=== PATIENT | female | born 1960 | race Caucasian/White ===

== ENCOUNTER 2021-11-24 16:34 | Emergency (ER) | payer BC, OTHER ==
[2021-11-24] MEDS ORDERED: Catapres 0.1 MG PO ONE (17:11)
[2021-11-24] MEDS ORDERED: Catapres 0.1 MG ONE (17:14)
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
[2021-11-24 17:54] LABS: Absolute Neutrophil Ct (ANC) 9.34 (1.4-6.9); Basophil (Absolute #) 0.06 (0-0.4); Eosinophil % 0.3 % (0.00-5.0); Eosinophil (Absolute #) 0.04 (0-0.5); Hemoglobin 17.7 gm/dl (12.0-16.0); Lymphocyte (Absolute #) 3.31 (1.0-4.6); Lymphocytes % 23.5 % (24.0-44.0); Mean Cell Volume 86.3 fl (78-100); Mean Corpuscular Hemoglobin 29.9 pg (26-32); Mean Corpuscular Hgb Concent. 34.7 g/dl (32-36); Mean Platelet Volume 9.9 fl (7.5-11.0); Monocyte (Absolute #) 1.35 (0.0-1.3); Monocytes % 9.6 % (0.0-12.0); Neutrophil % 66.2 % (36.0-66.0); Platelet Count 305 K/mm3 (150-450); Red Blood Count 5.91 M/mm3 (4.1-5.4); Red Cell Distribution Width 13.8 % (11.5-14.0); White Blood Count 14.1 K/mm3 (4.0-10.5)
[2021-11-24 18:08] LABS: ALBUMIN 4.6 g/dL (3.5-5.0); ALKALINE PHOSPHATASE 139 U/L (38-126); AMYLASE 69 U/L (30-110); ANION GAP 16.4 MEQ/L (5-15); BLOOD UREA NITROGEN 29 mg/dL (7-17); CHLORIDE 96 mmol/L (98-107); Calcium 10.4 mg/dL (8.4-10.2); Carbon Dioxide 24 mmol/L (22-30); Creatinine 1 0.85 mg/dL (0.52-1.04); EST GLOMERULAR FILTRATION RATE > 60.0 ML/MIN; Glucose 124 mg/dL (74-106); LIPASE 109 U/L (23-300); Potassium 3.8 mmol/L (3.5-5.1); SGOT/AST 29 U/L (14-36); SGPT/ALT 22 U/L (0-35); SODIUM 133 mmol/L (137-145); Total Protein 7.6 g/dL (6.3-8.2)
[2021-11-24 18:09] LABS: Appearance CLOUDY (CLEAR); Bacteria RARE /HPF (NEGATIVE); Bilirubin NEGATIVE (NEGATIVE); Blood NEGATIVE Ery/ul (0-5); Epithelial Cells MANY /HPF (FEW); Glucose NEGATIVE (NEGATIVE); Hyaline Casts 26-50 /LPF (0-2); Ketones TRACE (NEGATIVE); Leukocyte Esterase NEGATIVE (NEGATIVE); Mucus MANY /HPF (NEGATIVE); Nitrite NEGATIVE (NEGATIVE); Protein,Urine Dip 100 (Negative); Specific Gravity 1.023 (1.005-1.025); Urobilinogen 2 mg/dL (0-1)
[2021-11-24 19:39] VITALS: O2SAT 98
[2021-11-24 20:35] VITALS: BP 134/93; PULSE 117
--- NOTE | 2021-11-25 08:59 | XRAY ---
Indication: Abdomen/pelvic pain 5 days. Nausea, vomiting, diarrhea. Multiple contiguous axial images obtained through the abdomen and pelvis using 80 cc Isovue 370 contrast. Comparison: None Lung bases are clear with incidental emphysema. Heart is not enlarged. Noncontrasted stomach and bowel loops appear nonobstructed. Appendix not visualized. No free fluid/air. Remaining liver, gallbladder, pancreas, spleen, adrenal glands, kidneys, ureters, bladder, and uterus are unremarkable. Moderate scattered aortoiliac calcifications. No AAA or pathologic retroperitoneal lymphadenopathy. Osseous structures intact with mild osteopenia and minimal/mild degenerative changes throughout the spine and both hips. No ventral or inguinal hernias. Impression: 1. Pulmonary emphysema and chronic bony findings. 2. Remaining CT abdomen/pelvis with contrast exam is negative.
== END 2021-11-24 20:35 | disposition home or self-care (01) ==
LOC: ED 16:34
DX: R10.33 Periumbilical pain (principal); I10 Essential (primary) hypertension; R11.2 Nausea with vomiting, unspecified; Z72.0 Tobacco use
CPT/HCPCS: 36000; 36415; 74177; 80053; 81001; 82150; 83690; 84484; 85025; 93005; 99284; A9270-GY